=== PATIENT | male | born 1995 | race Caucasian/White ===

== ENCOUNTER 2024-09-27 13:59 | Emergency (ER) | payer OTHER ==
[2024-09-27] MEDS: Loperamide 2 MG Cap PO ONE (14:58)
[2024-09-27] MEDS: Ibuprofen 600 MG Tab PO ONE (14:58)
== END 2024-09-27 15:00 | disposition home or self-care (01) ==
LOC: MW.ED 13:59
DX: R19.7 Diarrhea, unspecified (principal); Z75.8 Other problems related to medical facilities and other health care
CPT/HCPCS: 99283; A9270